=== PATIENT | female | born 1985 | race Caucasian/White ===

== ENCOUNTER 2017-01-23 13:09 | Emergency (ER) | payer SELFPAY ==
[2017-01-23 13:58] VITALS: BP 112/73
--- NOTE | 2017-01-23 14:05 | Emergency Department Report ---
Entered by DERRICK UMANA, acting as scribe for BRAEDEN EUGENE NP. Chief Complaint: Abdominal Pain Stated Complaint: UPSET STOMACH Time Seen by Provider: 01/23/17 13:56 - HPI History of Present Illness: 31 y/o female presents with abd pain that started 2 days ago. Medication includes Prilosec taken for GERD. Pt reports she just moved and left her meds in storage 2 months ago. - ROS Review of Systems: +abd pain + lmp in November - pt states she does not take her bcps as prescribed + nausea - Exam Vital Signs: Vital Signs 01/23/17 13:53 Temperature 99.4 F Pulse Rate 76 Respiratory 16 Rate Blood Pressure 112/73 O2 Sat by Pulse 100 Oximetry Physical Exam: a and o x4 steady gait abd: soft and nontender, no rebound or guarding. MSE screening note: Focused history and physical exam performed. Due to findings the following was ordered: labs ED Disposition for MSE Clinical Impression: Abdominal pain Qualifiers: Abdominal location: unspecified location Qualified Code(s): R10.9 - Unspecified abdominal pain Disposition: Z-07 ELOPED Is pt being admited?: No Does the pt Need Aspirin: No Condition: Stable Time of Disposition: 14:04 This documentation as recorded by the scribeLYNDSAY RYAN,accurately reflects the service I personally performed and the decisions made by VALORIE fishman TRACY M [employer]IST[employer] MANAGER.
== END 2017-01-23 19:30 | disposition left against medical advice (07) ==
LOC: ED 13:09
DX: R10.9 Unspecified abdominal pain (principal); R11.0 Nausea; K21.9 Gastro-esophageal reflux disease without esophagitis; Z53.21 Procedure and treatment not carried out due to patient leaving prior to being seen by health care provider